=== PATIENT | male | born 1995 | race Caucasian/White ===

== ENCOUNTER → 2020-12-03 | Outpatient (CLI) | payer BC ==
--- NOTE | 2020-12-03 11:07 | Diagnostic Imaging Report ---
INDICATION: Followup positive COVID. EXAMINATION: 2 view chest 12/03/2020 FINDINGS: The cardiomediastinal silhouette is unremarkable. The pulmonary vasculature is within normal limits. The lungs and pleural spaces are clear. IMPRESSION: No evidence of an acute cardiopulmonary process. Dictated by: Dictated on workstation # [id number]
== END ==
LOC: RAD 09:16
PROVIDERS: ATTEND Nurse Practitioner Family
DX: Z86.16 Personal history of COVID-19 (principal)
CPT/HCPCS: 71046

== ENCOUNTER → 2020-12-12 | Outpatient (CLI) | payer BC ==
[~2020-12-12] MED LIST: RT-ALBUTEROL SULF 2.5 MG/3 ML PRE-MIX VIAL INH ONE
== END ==
LOC: RT 15:45
PROVIDERS: ATTEND Nurse Practitioner Family
DX: Z86.16 Personal history of COVID-19 (principal)
CPT/HCPCS: 94060; 94726; 94729

== ENCOUNTER → 2021-01-03 | Outpatient (CLI) | payer BC | LOC: LAB FS 11:46 | PROVIDERS: ATTEND Registered Nurse Emergency | DX: Z53.9 Procedure and treatment not carried out, unspecified reason (principal) ==

== ENCOUNTER → 2022-02-09 | Outpatient (CLI) | payer BC ==
--- NOTE | 2022-02-09 11:24 | Diagnostic Imaging Report ---
INDICATION: Knee pain. COMPARISON: None available TECHNIQUE: Three radiographs of the left knee dated 02/09/2022. FINDINGS: No acute fracture or dislocation. No destructive osseous process. Joint spaces are well maintained. No significant osteophytosis. No joint effusion. No suspicious radiopaque foreign body. IMPRESSION: No acute osseous abnormality. Dictated by: Dictated on workstation # [id number]
== END ==
LOC: RAD FS 10:37
PROVIDERS: ATTEND Nurse Practitioner
DX: M25.562 Pain in left knee (principal)
CPT/HCPCS: 73562

== ENCOUNTER → 2022-05-26 | Outpatient (CLI) | payer BC ==
--- NOTE | 2022-05-26 17:05 | Diagnostic Imaging Report ---
INDICATION: Bilateral finger pain post injury. TECHNIQUE: 3 radiographs right index finger 3 radiographs left little finger. CORRELATION STUDY: None FINDINGS: Right index finger: There is normal alignment and appearance of the osseous structures of the finger. The joint spaces are maintained. There is very subtle lucency at the base aspect middle phalanx. However, no definitive fracture line. The soft tissues are unremarkable. Left little finger:There is normal alignment and appearance of the osseous structures of the finger. The joint spaces are maintained. There is no acute fracture. The soft tissues are unremarkable. IMPRESSION: 1. Negative for acute bony abnormality of the right index finger. 2. Negative for acute bony abnormality of the left little finger. Dictated by: Dictated on workstation # [id number]
== END ==
LOC: RAD FS 14:13
PROVIDERS: ATTEND Registered Nurse Emergency
DX: M79.644 Pain in right finger(s) (principal); M79.645 Pain in left finger(s)